=== PATIENT | male | born 1945 | race Caucasian/White ===

== ENCOUNTER → 2016-07-22 | Outpatient (CLI) | payer MEDICARE ==
--- NOTE | 2016-07-22 16:58 | CT ---
EXAMINATION TYPE: CT sinus wo con DATE OF EXAM: 07/22/2016 4:51 PM COMPARISON: 05/04/2012 HISTORY: Sinus headaches. CT DLP: 602.[address] of the paranasal sinuses was performed in the axial and coronal planes. Bone and soft tissue settings are submitted. The paranasal sinuses demonstrate normal aeration and development. The paranasal sinuses are free of mucosal thickening or air fluid level. The osteal meatal units are patent bilaterally. The nasal septum is midline. No bony destructive changes are seen within the field of view. IMPRESSION: No significant abnormality seen.
== END ==
LOC: RADCTMAIN 16:30
PROVIDERS: ATTEND Specialist
DX: J32.9 Chronic sinusitis, unspecified (principal)
CPT/HCPCS: 70486

== ENCOUNTER → 2017-04-05 | Outpatient (CLI) | payer MEDICARE | END | disposition home or self-care (01) | LOC: LABWHC1 14:33 | PROVIDERS: ATTEND Internal Medicine | DX: E78.2 Mixed hyperlipidemia (principal); E03.9 Hypothyroidism, unspecified; I10 Essential (primary) hypertension; R53.83 Other fatigue; E53.9 Vitamin B deficiency, unspecified; Z72.820 Sleep deprivation; Z79.899 Other long term (current) drug therapy | CPT/HCPCS: 36415; 82533; 83036; 83090; 84436; 84439; 84443; 84481 ==

== ENCOUNTER → 2018-11-14 | Outpatient (CLI) | payer MEDICARE | END | disposition home or self-care (01) | LOC: LABWHC1 13:45 | PROVIDERS: ATTEND Podiatrist Foot Surgery | DX: M79.675 Pain in left toe(s) (principal) | CPT/HCPCS: 36415; 84550 ==

== ENCOUNTER → 2023-10-12 | Outpatient (CLI) | payer MEDICARE ==
[2023-10-13 05:29] LABS: Blood Urea Nitrogen 20.4 mg/dL (9.0-27.0); Chloride 103 mmol/L (96-109); Sodium 143 mmol/L (135-145)
[2023-10-13 05:35] LABS: HCT 38.9 % (39.6-50.0); HGB 13.2 g/dL (13.0-17.0); MCH 31.9 pg (27.0-32.0); MCHC 33.9 g/dL (32.0-37.0); Mean Platelet Volume 10.3 FL (9.5-12.2); NRBC Per 100 WBC 0 X 10*3/uL (0.00-0.01); Platelet Count 184 X 10*3/uL (140-440); RBC 4.14 X 10*6/uL (4.40-5.60); WBC 4.57 X 10*3/uL (4.50-10.00)
== END | disposition home or self-care (01) ==
LOC: LABPAT 15:22
PROVIDERS: ATTEND Student in an Organized Health Care Education/Training Program
DX: Z01.812 Encounter for preprocedural laboratory examination (principal); R07.9 Chest pain, unspecified
CPT/HCPCS: 36415; 80051; 82565; 84520; 85027